=== PATIENT | male | born 1950 | race Caucasian/White ===

== ENCOUNTER → 2017-08-11 | Outpatient (CLI) | payer MEDICARE, OTHER ==
[~2017-08-11] MED LIST: ASPIR 8181 M1 PO; ASPIRIN325 PO; CARAFATE1 GM PO; COCONUT OIL1000 MG PO; COREG3.125 MG PO; EFFIENT10 MG PO; FISH OIL 1,001000 M2 PO; FISH OIL 1,001000 MG PO; FLEXERIL PO; GARLIC OIL1000 MG; ICAPS TABLET1 EACH PO; LIPITOR 20 MG T20 M1 PO; LIPITOR40 MG PO; LISINOPRIL5 MG PO; MEDROLDOSEPACK PO; MULTIVITAMINS1 EAC7; NITROGLYCERIN0.4 MG SUBLING; NORCO 5-325 TA1 EACH PO; OMEPRAZOLE; PLAVIX 75 MG TA75 M1 PO; PROTONIX 20 MG20 M1 PO; PROTONIX40 M4 PO; ZANTAC 150MG T150 M1 PO
--- NOTE | 2017-08-11 13:31 | 2DMMODE ---
[place] [address] 2 D/M-MODE ECHOCARDIOGRAM Name: ALEXANDRE MCGREGOR JR Room: [facility]#: [id number] Admission: 08/11/17 Attend Phys: Tammie Brooks Discharge: Date of : 48 Date of Service: 08/11/17 1331 Report #: [id number] THIS REPORT FOR: //name// APPROVED REPORT Study performed: 08/11/2017 08:01:05 EXAM: Comprehensive 2D, Doppler, and color-flow Echocardiogram Patient Location: Out-Patient BSA: 2.09 HR: 50 bpm BP: 128/88 mmHg Other Information Study Quality: Good Indications CAD Hypertension/HDD 2D Dimensions LVEF(%): 54.08 (>50%) IVSd: 15.88 (7-11mm) LVOT Diam: 18.93 (18-24mm) LVDd: 43.97 mm PWd: 13.04 (7-11mm) Ascending Ao: 33.29 (22-36mm) LVDs: 31.75 (25-40mm) Aortic Root: 29.94 mm Cano's LVEF: 54.08 % Volumes Left Atrial Volume (Systole) LA ESV Index: 34.40 mL/m2 Aortic Valve AoV Peak Cyril.: 2.19 m/s AO Peak Gr.: 19.15 mmHg LVOT Max P.72 mmHg AO Mean Gr.: 10.29 mmHg LVOT Mean P.84 mmHg LVOT Max V: 1.20 m/s AO V2 VTI: 49.93 cm LVOT Mean V: 0.77 m/s AISSATOU (VTI): 1.70 cm2 LVOT V1 VTI: 30.25 cm Mitral Valve E/A Ratio: 1.58 MV Decel. Time: 207.19 [place] [address] 2 D/M-MODE ECHOCARDIOGRAM Name: ALEXANDRE MCGREGOR JR Room: [facility]#: [id number] Admission: 08/11/17 Attend Phys: Tammie Brooks Discharge: Date of : 48 Date of Service: 08/11/17 1331 Report #: [id number] MV E Max Cyril.: 1.05 m/s MV PHT: 60.09 ms MVA (PHT): 3.66 cm2 TDI E/Lateral E': 8.75 E/Medial E': 10.50 Medial E' Cyril.: 0.10 m/s Lateral E' Cyril.: 0.12 m/s Pulmonary Valve PV Peak Cyril.: 0.91 m/s PV Peak Gr.: 3.29 mmHg Tricuspid Valve RAP Estimate: 5.00 mmHg TR Peak Gr.: 17.68 mmHg RVSP: 22.68 mmHg PA Pressure: 22.68 mmHg Left Ventricle The left ventricle is normal size. There is normal LV segmental wall motion. Mild concentric left ventricular hypertrophy. Left ventricular systolic function is normal. The left ventricular ejection fraction is within the normal range. LVEF is 55%. The left ventricular diastolic function is normal. Right Ventricle The right ventricle is normal size. The right ventricular systolic function is normal. Atria Left atrium is borderline dilated. The right atrium size is normal. Aortic Valve Aortic valve is calcified. Trace aortic regurgitation. Mild aortic stenosis. Mitral Valve The mitral valve is normal in structure. Mild mitral regurgitation. No evidence of mitral valve stenosis. Tricuspid Valve The tricuspid valve is normal in structure. Trace tricuspid regurgitation. Pulmonic Valve The pulmonary valve is normal in structure. [place] [address] 2 D/M-MODE ECHOCARDIOGRAM Name: ALEXANDRE MCGREGOR JR Room: [facility]#: [id number] Admission: 08/11/17 Attend Phys: Tammie Brooks Discharge: Date of : 48 Date of Service: 08/11/17 1331 Report #: [id number] regurgitation. Great Vessels The aortic root is normal in size. IVC is normal in size and collapses with >50% inspiration Pericardium There is no pericardial effusion. <Conclusion> The left ventricle is normal size. Mild concentric left ventricular hypertrophy. Left ventricular systolic function is normal. The left ventricular ejection fraction is within the normal range. LVEF is 55%. The left ventricular diastolic function is normal. The right ventricle is normal size. Left atrium is borderline dilated. Aortic valve is calcified. Trace aortic regurgitation. Mild aortic stenosis. The mitral valve is normal in structure. Mild mitral regurgitation. IVC is normal in size and collapses with >50% inspiration There is no pericardial effusion. There is normal LV segmental wall motion. <ELECTRONICALLY SIGNED> By: Jeremiah Anguiano MD, FACC 08/11/17 1331 133 30 Jeremiah Anguiano MD, FACC /INF
== END ==
LOC: M.CRD 07:42
DX: I25.10 Atherosclerotic heart disease of native coronary artery without angina pectoris (principal); I10 Essential (primary) hypertension

== ENCOUNTER → 2017-09-22 | Outpatient (CLI) | payer MEDICARE, OTHER ==
[2017-09-22 08:00] LABS: CREATININE 1.2 mg/dL (0.6-1.3)
== END ==
LOC: M.LAB 07:32
PROVIDERS: Internal Medicine
DX: K57.30 Diverticulosis of large intestine without perforation or abscess without bleeding (principal); J94.8 Other specified pleural conditions; C43.59 Malignant melanoma of other part of trunk; I65.23 Occlusion and stenosis of bilateral carotid arteries; L50.9 Urticaria, unspecified; R10.9 Unspecified abdominal pain; R07.9 Chest pain, unspecified; I25.10 Atherosclerotic heart disease of native coronary artery without angina pectoris; I10 Essential (primary) hypertension

== ENCOUNTER → 2017-11-18 | Outpatient (CLI) | payer MEDICARE, OTHER | LOC: M.ULTRA 07:36 | DX: I65.23 Occlusion and stenosis of bilateral carotid arteries (principal); K21.9 Gastro-esophageal reflux disease without esophagitis ==

== ENCOUNTER → 2018-03-15 | Outpatient (CLI) | payer MEDICARE, OTHER | LOC: M.ULTRA 08:31 | DX: I65.23 Occlusion and stenosis of bilateral carotid arteries (principal) ==

== ENCOUNTER → 2018-08-25 | Outpatient (CLI) | payer MEDICARE, OTHER ==
[2018-08-25 09:06] LABS: CREATININE 1.1 mg/dL (0.6-1.3)
== END ==
LOC: M.LAB 08:30
PROVIDERS: Surgery Vascular Surgery
DX: I65.23 Occlusion and stenosis of bilateral carotid arteries (principal)

== ENCOUNTER → 2018-12-29 | Outpatient (CLI) | payer MEDICARE, OTHER ==
[~2018-12-29] MED LIST changes: +COREG25 MG PO; +RANITIDINE HCL300 MG PO; +TRIAMCINOLONE A80 G2 TOP; +ZYRTEC10 M5 PO
--- NOTE | 2018-12-29 11:14 | 2DMMODE ---
[place] [address] 2 D/M-MODE ECHOCARDIOGRAM Name: ALEXANDRE MCGREGOR JR Room: [facility]#: [id number] Admission: 12/29/18 Attend Phys: Tammie Brooks Discharge: Date of : 48 Date of Service: 12/29/18 1114 Report #: [id number] THIS REPORT FOR: //name// APPROVED REPORT Study performed: 12/29/2018 08:58:47 EXAM: Comprehensive 2D, Doppler, and color-flow Echocardiogram Patient Location: Out-Patient BSA: 2.15 HR: 54 bpm BP: 120/80 mmHg Other Information Study Quality: Good Indications CAD Hypertension/HDD 2D Dimensions IVSd: 11.83 (7-11mm) LVOT Diam: 20.40 (18-24mm) LVDd: 42.02 mm PWd: 11.68 (7-11mm) Ascending Ao: 33.87 (22-36mm) LVDs: 30.84 (25-40mm) Aortic Root: 32.21 mm Volumes Left Atrial Volume (Systole) LA ESV Index: 18.90 mL/m2 Aortic Valve AoV Peak Cyril.: 2.27 m/s AO Peak Gr.: 20.56 mmHg LVOT Max P.42 mmHg AO Mean Gr.: 11.51 mmHg LVOT Mean P.45 mmHg LVOT Max V: 1.16 m/s AO V2 VTI: 51.77 cm LVOT Mean V: 0.71 m/s AISSATOU (VTI): 1.62 cm2 LVOT V1 VTI: 25.68 cm Mitral Valve E/A Ratio: 1.24 MV Decel. Time: 219.63 ms MV E Max Cyril.: 0.99 m/s MV PHT: 63.69 [place] [address] 2 D/M-MODE ECHOCARDIOGRAM Name: ALEXANDRE MCGREGOR JR Room: [facility]#: [id number] Admission: 12/29/18 Attend Phys: Tammie Brooks Discharge: Date of : 48 Date of Service: 12/29/18 1114 Report #: [id number] MVA (PHT): 3.45 cm2 TDI E/Lateral E': 11.00 E/Medial E': 11.00 Medial E' Cyril.: 0.09 m/s Lateral E' Cyril.: 0.09 m/s Pulmonary Valve PV Peak Cyril.: 0.94 m/s PV Peak Gr.: 3.57 mmHg Left Ventricle The left ventricle is normal size. There is normal LV segmental wall motion. There is normal left ventricular wall thickness. Left ventricular systolic function is normal. The left ventricular ejection fraction is within the normal range. LVEF is 55-60%. The left ventricular diastolic function is normal. Right Ventricle The right ventricle is normal size. The right ventricular systolic function is normal. Atria The left atrium size is normal. The right atrium size is normal. Aortic Valve Aortic valve is mild to moderately calcified. No aortic regurgitation is present. Mild aortic stenosis. Mitral Valve Mild mitral annular calcification. Mild mitral regurgitation. No evidence of mitral valve stenosis. Tricuspid Valve The tricuspid valve is normal in structure. There is no tricuspid valve regurgitation noted. Pulmonic Valve The pulmonary valve is normal in structure. Mild pulmonic regurgitation. Great Vessels The aortic root is normal in size. IVC is normal in size and collapses >50% [place] [address] 2 D/M-MODE ECHOCARDIOGRAM Name: ALEXANDRE MCGREGOR JR Room: [facility]#: [id number] Admission: 12/29/18 Attend Phys: Tammie Brooks Discharge: Date of : 48 Date of Service: 12/29/18 1114 Report #: [id number] There is no pericardial effusion. <Conclusion> The left ventricle is normal size. There is normal left ventricular wall thickness. Left ventricular systolic function is normal. The left ventricular ejection fraction is within the normal range. LVEF is 55-60%. The left ventricular diastolic function is normal. The right ventricle is normal size. The left atrium size is normal. Aortic valve is mild to moderately calcified. No aortic regurgitation is present. Mild aortic stenosis. Mild mitral annular calcification. Mild mitral regurgitation. No evidence of mitral valve stenosis. The tricuspid valve is normal in structure. IVC is normal in size and collapses >50% with inspiration. There is no pericardial effusion. There is normal LV segmental wall motion. <ELECTRONICALLY SIGNED> By: Jeremiah Anguiano MD, FACC 12/29/18 1114 1114 111 Jeremiah Anguiano MD, FACC /INF
== END ==
LOC: M.CRD 08:47
DX: I08.8 Other rheumatic multiple valve diseases (principal); I25.10 Atherosclerotic heart disease of native coronary artery without angina pectoris; I10 Essential (primary) hypertension

== ENCOUNTER → 2019-05-16 | Outpatient (CLI) | payer MEDICARE, OTHER | LOC: M.RAD 11:01 | DX: M25.531 Pain in right wrist (principal); M79.89 Other specified soft tissue disorders ==

== ENCOUNTER 2020-03-23 01:28 | Inpatient (IN) | payer MEDICARE, OTHER ==
[~2020-03-23] VITALS: Ht 180.3 cm; Wt 93.3 kg
[2020-03-23] VITALS (16 sets, daily range): BP systolic 105–168; BP diastolic 57–88
[2020-03-23 02:05] LABS: ABSOLUTE EOSINOPHILS 0.1 thou/uL (0.0-0.7); ABSOLUTE LYMPHOCYTES 1.6 thou/uL (0.8-5.3); ABSOLUTE MONOCYTES 0.9 thou/uL (0.0-1.2); ABSOLUTE NEUTROPHILS 6.5 thou/uL (1.6-8.1); BASOPHILS 0.5 %; EOSINOPHILS 1.5 %; HEMATOCRIT 43.1 % (42.0-52.0); HEMOGLOBIN 14.7 gm/dL (14.0-18.0); LYMPHOCYTES 16.9 %; MCH 31.5 pg (26.0-34.0); MCHC 34.1 g/dL (28.0-37.0); MCV 92.4 fL (80.0-100.0); MONOCYTES 10.1 %; MPV 8.4 fl. (7.2-11.1); NUCLEATED RBCS 0 /100WBC; PLATELET COUNT* 278 thou/uL (150-400); RBC 4.66 mil/uL (4.50-6.00); RDW-CV 12.8 % (10.5-14.5); WBC 9.2 thou/uL (4.0-11.0)
[2020-03-23 02:12] LABS: CALCIUM 10.1 mg/dL (8.5-10.1); CREATININE 1.2 mg/dL (0.6-1.3); POTASSIUM 4.1 mmol/L (3.5-5.1)
[2020-03-23 02:23] LABS: ALBUMIN 3.6 g/dL (3.4-5.0); TOTAL BILIRUBIN 0.5 mg/dL (<0.1-1.0); TOTAL PROTEIN 6.8 g/dL (6.4-8.2)
[2020-03-23 02:33] LABS: APTT 26.9 Seconds (25.0-31.3); PROTIME 10.9 Seconds (9.20-11.50)
[2020-03-23 08:49] LABS: CHOLESTEROL 207 mg/dL (<200); HDL CHOLESTEROL 29 mg/dL (>40); LDL CHOLESTEROL 159 mg/dL (<100); SERUM ASSESSMENT Clear; TC:HDL 7.1 Ratio (Not establshd); TRIGLYCERIDE 96 mg/dL (<150); VLDL 19 mg/dL (<40)
--- NOTE | 2020-03-23 12:59 | EKG ---
[place] [address] ELECTROCARDIOGRAM REPORT Name: ALEXANDRE MCGREGOR JR Room: [address] ADM IN M.R.#: [id number] Admission: 03/23/20 Attend Phys: Omid Willson, Discharge: Date of : 48 Date of Service: 03/23/20 0138 Report #: [id number] THIS REPORT FOR: //name// [facility] ED Test Date: 2020-03-23 Test Time: 01:38:06 Pat Name: ALEXANDRE COTTONNEY Department: Room: [facility] Gender: M Supervisor Ovens: RAPHAEL : 1950 Requested By: Carmencita Melissa Order Number: [id number] MD: Yogesh Love Measurements Intervals [place] Rate: 77 P: -15 KS: 190 QRS: -5 QRSD: 99 T: -16 QT: 373 QTc: 423 Interpretive Statements Sinus rhythm Multiple ventricular premature complexes Abnormal R-wave progression, early transition Inferior infarct, age indeterminate Compared to ECG 12/17/2014 18:22:35 Ventricular premature complex(es) now present Myocardial infarct finding now present Electronically Signed On 03-23-2020 12:59:43 RESISTANCE BRAZER by Yogesh Love [email or web address] <ELECTRONICALLY SIGNED> By: Yogesh Love MD, FACC 03/23/20 1259 7 7 Yogesh Love MD, [facility] /EPI
--- NOTE | 2020-03-23 13:00 | EKG ---
[place] [address] ELECTROCARDIOGRAM REPORT Name: ALEXANDRE MCGREGOR JR Room: [address] ADM IN M.R.#: [id number] Admission: 03/23/20 Attend Phys: Omid Willson, Discharge: Date of : 48 Date of Service: 03/23/20 0336 Report #: [id number] THIS REPORT FOR: //name// [facility] ED Test Date: 2020-03-23 Test Time: 03:36:21 Pat Name: ALEXANDRE COTTONNEY Department: Room: [facility] Gender: M Computer Systems Technician: : 1950 Requested By: Carmencita Melissa Order Number: [id number] MD: Yogesh Love Measurements Intervals [place] Rate: 59 P: 5 IN: 206 QRS: -8 QRSD: 108 T: 60 QT: 440 QTc: 436 Interpretive Statements Sinus rhythm Probable inferior infarct, old Compared to ECG 03/23/2020 01:38:06 Ventricular premature complex(es) no longer present Myocardial infarct finding still present Electronically Signed On 03-23-2020 13:00:36 TRACK MAINTAINER by Yogesh Love [email or web address] <ELECTRONICALLY SIGNED> By: Yogesh Love MD, FACC 03/23/20 1300 0336 0336 Yogesh Love MD, FACC /EPI
--- NOTE | 2020-03-23 13:01 | EKG ---
[place] [address] ELECTROCARDIOGRAM REPORT Name: ALEXANDRE MCGREGOR JR Room: [address] ADM IN M.R.#: [id number] Admission: 03/23/20 Attend Phys: Omid Willson, Discharge: Date of : 48 Date of Service: 03/23/20 0838 Report #: [id number] THIS REPORT FOR: //name// [facility] Test Date: 2020-03-23 Test Time: 08:38:30 Pat Name: ALEXANDRE COTTONNEY Department: Room: [address] Gender: M Satellite Communications Engineer: : 1950 Requested By: Aixa Simms Order Number: [id number] Reading MD: Yogesh Love Measurements Intervals [place] Rate: 66 P: 4 GA: 202 QRS: -2 QRSD: 93 T: QT: 419 QTc: 439 Interpretive Statements Sinus rhythm Ventricular bigeminy Abnormal R-wave progression, early transition Borderline repolarization abnormality Baseline wander in lead(s) II,III,aVR,aVL,aVF Compared to ECG 03/23/2020 03:36:21 Ventricular premature complex(es) now present Myocardial infarct finding no longer present Electronically Signed On 03-23-2020 13:01:13 POTATO CHIP PACKAGING MACHINE OPERATOR by Yogesh Love [email or web address] <ELECTRONICALLY SIGNED> By: Yogesh Love MD, FAC 03/23/20 1301 7 7 Yogesh Love MD, [facility] /EPI
--- NOTE | 2020-03-23 13:02 | EKG ---
[place] [address] ELECTROCARDIOGRAM REPORT Name: ALEXANDRE MCGREGOR JR Room: [address] ADM IN M.R.#: [id number] Admission: 03/23/20 Attend Phys: Omid Willson, Discharge: Date of : 48 Date of Service: 03/23/20 1126 Report #: [id number] THIS REPORT FOR: //name// [facility] Test Date: 2020-03-23 Test Time: 11:26:36 Pat Name: ALEXANDRE MCGREGOR Department: Room: [address] Gender: M Window Shade Installer: GUTIERREZ : 1950 Requested By: Jeremiah Anguiano Order Number: [id number] Asha MD: Yogesh Love Measurements Intervals [place] Rate: 63 P: 10 TN: 199 QRS: -2 QRSD: 104 T: 34 QT: 409 QTc: 419 Interpretive Statements Sinus rhythm Multiform ventricular premature complexes Inferoposterior infarct, old Baseline wander in lead(s) V6 Compared to ECG 03/23/2020 08:38:30 Myocardial infarct finding now present Electronically Signed On 03-23-2020 13:02:09 DOG GROOMER by Yogesh Love [email or web address] <ELECTRONICALLY SIGNED> By: Yogesh Love MD, FACC 03/23/20 1302 1126 1126 Yogesh Love MD, FACC /EPI
--- NOTE | 2020-03-23 14:47 | CARD ---
[address] [address] CARDIAC CATH REPORT Name: ALEXANDRE MCGREGOR JR Room: [address] IN ..#: [id number] Admission: 03/23/20 Attend Phys: Omid Willson MD Discharge: Date of : 48 Report #: [id number] THIS REPORT FOR: cc: FAM - No family physician/PCP FAM - No family physician/PCP ~ Jeremiah Anguiano MD [facility] APPROVED REPORT Study performed: 03/23/2020 08:43:32 Patient Details Patient Status: In-Patient Room #: 212 The patient is a 70 year-old male Event Personnel Jeremiah Anguiano White Work Cleaner, Tea Ashley RN Monitor, Marina Cordero RN Certified Ophthalmic Technician, Brett Poole RTR Scrub Procedures Performed Art Access - R femoral artery* Left Heart Cath w/or w/o Coronaries C BIRD Place w/wo Plasty Single DIAG Hemostasis w/ Angioseal Indication Non-STEMI , Unstable angina Risk Factors Arterial Hypertension Previous Procedures/Diagnoses Previous PCI Admission/Lab Medications/Medications given during procedure Aspirin, Thrombin Inhibitors, Platelet Aff. Inhib. Procedure Narrative The patient was brought emergently to the Cardiac Catheterization Laboratory and was prepped and draped in a sterile manner. The right femoral was infiltrated with 2% Lidocaine subcutaneous anesthesia. A Clifton 6 FR sheath was inserted into the right femoral artery. Coronary angiography was performed using coronary diagnostic catheters. The right coronary system was accessed and visualized with a Diagnostic JR4 6Fr catheter. The left coronary system was accessed and visualized with a Diagnostic JL4 6Fr catheter[place] [address] CARDIAC CATH REPORT Name: ALEXANDRE MCGREGOR JR Room: [address]#: [id number] Admission: 03/23/20 Attend Phys: Omid Willson MD Discharge: Date of : 48 Report #: [id number] was accessed and visualized with a Diagnostic PIGTAIL catheter. Left ventricular/Aortic Valve gradient assessed via catheter pullback. Left ventriculogram was performed in MCCULLOUGH projection. Pre-demployment femoral angiogram was performed . The patient tolerated the procedure well and there were no complications associated with the procedure. There was no hematoma. Intraoperative Conscious Sedation Sedation start time: 09:30 Case end Time: 10:25 Fentanyl 25 mcg Versed 2 mg Fluoro Time: 13 minutes Dose: DAP 633318 cGycm2 2055 mGy Contrast Type and Amount: Visipaque 280 ml Diagnostic Cath Left Main 0% narrowing LAD Widely patent proximal LAD stent with 30% mid vessel narrowing Diagonal 1 95% stenosis of the midportion of the prominent first diagonal branch with NICO II flow to the distal vessel Circumflex 70% tubular mid circumflex stenosis with 90% ostial first marginal stenosis Right Coronary 50% tubular mid vessel narrowing with 100% occlusion of the distal right coronary artery with [id number] collaterals filling the distal right coronary artery in retrograde fashion Left Ventriculography The left ventricle is normal in size with normal contractility. The left ventricular ejection fraction is estimated to be 55%. Left ventricular wall motion abnormalities are present. There is no mitral insufficiency. Mid anterior hypokinesis is noted Hemodynamics The aortic pressure is 96/51 mmHg with a mean of 64 mmHg. The left ventricular pressure is 120/4 mmHg with a mean of mmHg. The left ventricular end diastolic pressure is 20 mmHg. Pullback from the left ventricle to the aorta revealed a 15 mm gradient across the aortic valve. PCI Technique Lesion Anticoagulation was achieved with Angiomax. Percutaneous coronary intervention was performed on the first diagnonal branch segment. The lesion stenosis prior to intervention was 95% with NICO 2 flow. [place] 6[place] [address] CARDIAC CATH REPORT Name: ALEXANDRE MCGREGOR JR Room: [address]#: [id number] Admission: 03/23/20 Attend Phys: Omid Willson MD Discharge: Date of : 48 Report #: [id number] XB 3.5 100CM Guide Catheter was used to engage the Left Main ostium. A IG: BMW 190cm Interventional Guidewire was used to cross the lesion. BALLOON DILATION A Balloon catheter Mini Trek RX 2.0 X 15 was inserted and inflated up to 14.00atm for 15seconds. Additional Inflation: 15.00atm for 9seconds. A Balloon Catheter NC Trek 2.00 x 12mm was inserted and inflated up to 18 daniel for 9 seconds. Additional Inflation: 18 daniel for 10 seconds STENT DEPLOYMENT A drug-eluting stent [place] RX Stent 2.0X15mm was inserted and inflated up to 10.00atm for 7seconds. Additional Inflation: 12.00atm for 8seconds. POST STENT DEPLOYMENT BALLOON DILATION A Balloon catheter NC Trek RX 2.0 X 8 was inserted and inflated up to 17.00atm for 8seconds. Additional Inflation: 15.00atm for 8seconds. Final angiography reveals 10 % stenosis with NICO 3 flow. Conclusion 1. Significant multivessel coronary artery disease characterized by the following: A widely patent proximal LAD stent with 30% of mid vessel narrowing B 95% stenosis of the midportion of the prominent first diagonal branch with NICO II flow to the distal vessel C 70% tubular mid circumflex narrowing with 90% ostial first marginal stenosis D 50% tubular mid right coronary narrowing with 100% distal occlusion and left to right collaterals filling the distal right coronary artery in retrograde fashion 2. Normal global LV function, estimated ejection fraction being 55% with mid anterior hypokinesis 3. Moderate elevation of left ventricular end-[place] [address] CARDIAC CATH REPORT Name: ALEXANDRE MCGREGOR JR Room: [address]#: [id number] Admission: 03/23/20 Attend Phys: Omid Willson MD Discharge: Date of : 48 Report #: [id number] 4. Successful PCI with deployment of a drug-eluting stent at site of 95% first diagonal stenosis with 10% residual narrowing NICO-3 flow to the distal vessel and no residual thrombus 5. Mild aortic stenosis Recommendations Daily ASA with Plavix for at least one year Aggressive Medical Therapy Medications Administered Aspirin (any) Clopidogrel Diagnostic Cath Approved by: Jeremiah Anguiano MD Date/Time: 03/23/2020 14:44:46 <ELECTRONICALLY SIGNED> By: Jeremiah Anguiano MD, [facility] 03/23/20 1447 144 1447Jeremiah Anguiano MD, FACC /INF
[2020-03-24 04:18] LABS: HEMOGLOBIN 12.8 gm/dL (14.0-18.0); MCH 31.8 pg (26.0-34.0); MCHC 34.6 g/dL (28.0-37.0); MCV 91.9 fL (80.0-100.0); MPV 8.8 fl. (7.2-11.1); RBC 4.02 mil/uL (4.50-6.00); RDW-CV 12.7 % (10.5-14.5); WBC 9.4 thou/uL (4.0-11.0)
[2020-03-24 04:20] LABS: ALBUMIN 2.9 g/dL (3.4-5.0); CALCIUM 9.5 mg/dL (8.5-10.1); CREATININE 1.1 mg/dL (0.6-1.3); POTASSIUM 3.9 mmol/L (3.5-5.1); TOTAL BILIRUBIN 0.6 mg/dL (<0.1-1.0); TOTAL PROTEIN 5.4 g/dL (6.4-8.2)
[2020-03-24 04:21] VITALS: BP 117/67
[2020-03-24 08:00] VITALS: BP 130/52
[2020-03-24 11:49] VITALS: BP 137/75
[2020-03-24] MEDS ORDERED: PLAVIX 75 MG TA75 MG PO (12:37)
[2020-03-24] MEDS ORDERED: COREG3.125 MG PO (12:37)
[2020-03-24] MEDS ORDERED: ASPIR 8181 MG PO (12:37)
[2020-03-24] MEDS ORDERED: PROTONIX40 M2 PO (12:37)
[2020-03-24 15:49] VITALS: BP 137/75
--- NOTE | 2020-03-26 09:16 | EKG ---
[place] [address] ELECTROCARDIOGRAM REPORT Name: ALEXANDRE MCGREGOR JR Room: [address] IN M.R.#: [id number] Admission: 03/23/20 Attend Phys: Omid Willson, Discharge: 03/24/20 Date of : 48 Date of Service: 03/24/20 0413 Report #: [id number] THIS REPORT FOR: //name// [facility] Test Date: 2020-03-24 Test Time: 04:13:49 Pat Name: ALEXANDRE MCGREGOR Department: Room: [address] Gender: M Store Sales Manager: AJ : 1950 Requested By: Jeremiah Anguiano Order Number: [id number] Asha MD: Phuc Armenta Measurements Intervals [place] Rate: 65 P: 10 MT: 198 QRS: -2 QRSD: 92 T: 118 QT: 392 QTc: 408 Interpretive Statements Sinus rhythm Multiform ventricular premature complexes Inferoposterior infarct, old Lateral leads are also involved Compared to ECG 03/23/2020 11:26:36 No significant changes Electronically Signed On 03-26-2020 9:16:38 RELATIONS SPECIALIST by Phuc Armenta [email or web address] <ELECTRONICALLY SIGNED> By: Phuc Armenta MD, [facility] 03/26/20 0916 0413 0413 Phuc Armenta MD, [facility] /EPI
--- NOTE | 2020-03-26 12:52 | EKG ---
[place] [address] ELECTROCARDIOGRAM REPORT Name: ALEXANDRE MCGREGOR JR Room: [address] IN M.R.#: [id number] Admission: 03/23/20 Attend Phys: Omid Willson, Discharge: 03/24/20 Date of : 48 Date of Service: 03/24/20 0931 Report #: [id number] THIS REPORT FOR: //name// [facility] Test Date: 2020-03-24 Test Time: 09:31:40 Pat Name: ALEXANDRE COTTONNEY Department: Room: [address] Gender: M Licensed Master Social Worker: : 1950 Requested By: Jeremiah Anguiano Order Number: [id number] Reading MD: Phuc Armenta Measurements Intervals [place] Rate: 65 P: 26 FL: 200 QRS: 0 QRSD: 91 T: 111 QT: 392 QTc: 408 Interpretive Statements Sinus rhythm Multiple ventricular premature complexes Abnormal inferior Q waves Posterior infarct, old Borderline repolarization abnormality Baseline wander in lead(s) V5 Compared to ECG 03/24/2020 04:13:49 Myocardial infarct finding still present Electronically Signed On 03-26-2020 12:52:36 WRIST HEMMER by Puhc Armenta [email or web address] <ELECTRONICALLY SIGNED> By: Phuc Armenta MD, FACC 03/26/20 1252 0 0 Phuc Armenta MD, [facility] /EPI
== END 2020-03-24 16:20 | disposition home or self-care (01) | DRG 246 ==
LOC: M.ERS 01:28 → M.2W 03:49 → M.TBA-ER 03:49 → M.2W 04:35
PROVIDERS: Family Medicine; Internal Medicine; Personal Emergency Response Attendant; Registered Nurse; ADMIT Internal Medicine; ATTEND Internal Medicine
DX: I21.4 Non-ST elevation (NSTEMI) myocardial infarction (principal); I50.33 Acute on chronic diastolic (congestive) heart failure; I11.0 Hypertensive heart disease with heart failure; I25.10 Atherosclerotic heart disease of native coronary artery without angina pectoris; I35.0 Nonrheumatic aortic (valve) stenosis; E78.5 Hyperlipidemia, unspecified; N40.0 Benign prostatic hyperplasia without lower urinary tract symptoms; K21.9 Gastro-esophageal reflux disease without esophagitis; Z20.822 Contact with and (suspected) exposure to COVID-19; Z95.5 Presence of coronary angioplasty implant and graft; Z79.82 Long term (current) use of aspirin; Z79.899 Other long term (current) drug therapy; Z88.8 Allergy status to other drugs, medicaments and biological substances; Z23 Encounter for immunization

== ENCOUNTER 2020-04-04 08:57 | Observation (INO) | payer MEDICARE, OTHER ==
[~2020-04-04] VITALS: Ht 180.3 cm; Wt 87.1 kg
[2020-04-04] VITALS (12 sets, daily range): BP systolic 137–162; BP diastolic 62–92
[~2020-04-04 08:57] MED LIST changes: +ASPIR 8181 MG PO; +PLAVIX 75 MG TA75 MG PO; +PROTONIX40 M2 PO; -RANITIDINE HCL300 MG PO; +ranitidine PO
[2020-04-04 09:34] LABS: HEMATOCRIT 42.2 % (42.0-52.0); HEMOGLOBIN 14.5 gm/dL (14.0-18.0); MCH 31.9 pg (26.0-34.0); MCHC 34.3 g/dL (28.0-37.0); MCV 92.9 fL (80.0-100.0); MPV 8.2 fl. (7.2-11.1); RBC 4.54 mil/uL (4.50-6.00); RDW-CV 12.7 % (10.5-14.5); WBC 5.5 thou/uL (4.0-11.0)
[2020-04-04 09:45] LABS: ANION GAP 4 mmol/L (7-16); BUN 13 mg/dL (7-18); CALCIUM 10.2 mg/dL (8.5-10.1); CHLORIDE 105 mmol/L (98-107); CO2 29 mmol/L (21-32); CREATININE 1.1 mg/dL (0.6-1.3); GLUCOSE 111 mg/dL (70-99); POTASSIUM 4.2 mmol/L (3.5-5.1); SODIUM 138 mmol/L (136-145)
[2020-04-04 09:52] LABS: ALBUMIN 3.6 g/dL (3.4-5.0); ALKALINE PHOSPHATASE 73 U/L (46-116); CHOLESTEROL 211 mg/dL (<200); HDL CHOLESTEROL 33 mg/dL (>40); LDL CHOLESTEROL 158 mg/dL (<100); SGOT 12 U/L (15-37); SGPT 29 U/L (30-65); TC:HDL 6.4 Ratio (Not establshd); TOTAL BILIRUBIN 0.4 mg/dL (<0.1-1.0); TOTAL PROTEIN 7.2 g/dL (6.4-8.2); TRIGLYCERIDE 103 mg/dL (<150); VLDL 21 mg/dL (<40)
[2020-04-04 09:54] LABS: SERUM ASSESSMENT Clear
[2020-04-04 10:00] LABS: APTT 26.8 Seconds (25.0-31.3); PROTIME 10.4 Seconds (9.20-11.50)
--- NOTE | 2020-04-04 15:13 | 2DMMODE ---
[place] [address] 2 D/M-MODE ECHOCARDIOGRAM Name: ALEXANDRE MCGREGOR JR Room: [address] Doc#: [id number] Admission: 04/04/20 Attend Phys: Tammie Brooks Discharge: Date of : 48 Date of Service: 04/04/20 1513 Report #: [id number] THIS REPORT FOR: cc: ALICIA - Talisha family physician/PCP ALICIA - Talisha family physician/PCP Jeremiah Anguiano MD [facility] ~ APPROVED REPORT Study performed: 04/04/2020 13:52:34 EXAM: Comprehensive 2D, Doppler, and color-flow Echocardiogram Patient Location: In-Patient Room #: cl Status: routine BSA: 2.07 HR: 58 bpm BP: 146/83 mmHg Rhythm: NSR Other Information Study Quality: Good Indications CAD MR 2D Dimensions IVSd: 12.05 (7-11mm) LVOT Diam: 21.89 (18-24mm) LVDd: 49.75 mm PWd: 10.22 (7-11mm) LVDs: 29.79 (25-40mm) Aortic Root: 34.61 mm Volumes Left Atrial Volume (Systole) LA ESV Index: 18.90 mL/m2 Aortic Valve AoV Peak Cyril.: 2.29 m/s AO Peak Gr.: 21.06 mmHg LVOT Max P.34 mmHg AO Mean Gr.: 11.36 mmHg LVOT Mean P.98 mmHg LVOT Max V: 1.04 m/s AO V2 VTI: 41.58 cm LVOT Mean V: 0.64 m/s AISSATOU (VTI): 1.81 cm2 LVOT V1 VTI: 20.03 [place] [address] 2 D/M-MODE ECHOCARDIOGRAM Name: ALEXANDRE MCGREGOR Room: [address] MCarissa#: [id number] Admission: 04/04/20 Attend Phys: Tammie Brooks Discharge: Date of : 48 Date of Service: 04/04/20 1513 Report #: [id number] Mitral Valve E/A Ratio: 1.22 MV Decel. Time: 178.19 ms MV E Max Cyril.: 0.82 m/s MV PHT: 51.67 ms MVA (PHT): 4.26 cm2 TDI E/Lateral E': 8.20 E/Medial E': 9.11 Medial E' Cyril.: 0.09 m/s Lateral E' Cyril.: 0.10 m/s Left Ventricle The left ventricle is normal size. There is normal LV segmental wall motion. There is normal left ventricular wall thickness. Left ventricular systolic function is normal. The left ventricular ejection fraction is within the normal range. LVEF is 55%. The left ventricular diastolic function is normal. Right Ventricle The right ventricle is normal size. The right ventricular systolic function is normal. Atria The left atrium size is normal. The right atrium size is normal. Aortic Valve Moderate aortic valve sclerosis. No aortic regurgitation is present. Mild aortic stenosis. Mitral Valve There is mitral annular calcification. Mild mitral regurgitation. No evidence of mitral valve stenosis. Tricuspid Valve The tricuspid valve is normal in structure. Trace tricuspid regurgitation. Unable to assess PA pressure. Pulmonic Valve The pulmonary valve is normal in structure. There is no pulmonic valvular regurgitation. Great Vessels The aortic root is normal in size. IVC is [place] [address] 2 D/M-MODE ECHOCARDIOGRAM Name: ALEXANDRE MCGREGOR JR Room: [address] Doc#: [id number] Admission: 04/04/20 Attend Phys: Tammie Brooks Discharge: Date of : 48 Date of Service: 04/04/20 1513 Report #: [id number] collapses >50% with inspiration. Pericardium There is no pericardial effusion. <Conclusion> The left ventricle is normal size. There is normal left ventricular wall thickness. Left ventricular systolic function is normal. The left ventricular ejection fraction is within the normal range. LVEF is 55%. The right ventricle is normal size. The left atrium size is normal. Moderate aortic valve sclerosis. No aortic regurgitation is present. Mild aortic stenosis. There is mitral annular calcification. Mild mitral regurgitation. The tricuspid valve is normal in structure. IVC is normal in size and collapses >50% with inspiration. There is no pericardial effusion. There is normal LV segmental wall motion. <ELECTRONICALLY SIGNED> By: Jeremiah Anguiano MD, [facility] 04/04/20 1513 1513 151 Jeremiah Anguiano MD, FACC /INF
--- NOTE | 2020-04-04 15:29 | EKG ---
[place] [address] ELECTROCARDIOGRAM REPORT Name: ALEXANDRE MCGERGOR JR Room: [address] M.R.#: [id number] Admission: 04/04/20 Attend Phys: Tammie Brooks Discharge: Date of : 48 Date of Service: 04/04/20 1013 Report #: [id number] THIS REPORT FOR: //name// [facility] Test Date: 2020-04-04 Test Time: 10:13:46 Pat Name: ALEXANDRE MCGREGOR Department: Room: [facility] Gender: M Performance Consultant: TRAVIS : 1950 Requested By: Jeremiah Anguiano Order Number: [id number] Reading MD: Jeremiah Anguiano Measurements Intervals [place] Rate: 59 P: 39 GA: 214 QRS: 10 QRSD: 102 T: 84 QT: 398 QTc: 395 Interpretive Statements Sinus rhythm Borderline prolonged GA interval Probable left atrial enlargement Posterior infarct, old possible Nonspecific repol abnormality, diffuse leads Compared to ECG 03/24/2020 09:31:40 Ventricular premature complex(es) no longer present Inferior Q waves no longer present Prominent right precordial R waves persist Electronically Signed On 04-04-2020 15:29:11 PARACHUTE PANEL JOINER by Jeremiah Anguiano [email or web address] <ELECTRONICALLY SIGNED> By: Jeremiah Anguiano MD, [facility] 04/04/20 1529 1013 1013 Jeremiah Anguiano MD, [facility] /EPI
--- NOTE | 2020-04-04 15:34 | EKG ---
[place] [address] ELECTROCARDIOGRAM REPORT Name: ALEXANDRE MCGREGOR JR Room: [address] M.R.#: [id number] Admission: 04/04/20 Attend Phys: Tammie Brooks Discharge: Date of : 48 Date of Service: 04/04/20 1320 Report #: [id number] THIS REPORT FOR: //name// [facility] Test Date: 2020-04-04 Test Time: 13:20:59 Pat Name: ALEXANDRE COTTONNEY Department: Room: [facility] Gender: M Drill Foreman: : 1950 Requested By: Jeremiah Anguiano Order Number: [id number] Reading MD: Jeremiah Anguiano Measurements Intervals [place] Rate: 62 P: -35 [place]: 187 QRS: 8 QRSD: 92 T: 88 QT: 383 QTc: 389 Interpretive Statements Sinus rhythm Ventricular premature complex Abnormal R-wave progression, early transition Borderline repolarization abnormality Compared to ECG 04/04/2020 10:13:46 Ventricular premature complex(es) now present Myocardial infarct finding no longer present Electronically Signed On 04-04-2020 15:34:45 PERCOLATOR OPERATOR by Jeremiah Anguiano [email or web address] <ELECTRONICALLY SIGNED> By: Jeremiah Anguiano MD, FAC 04/04/20 1534 1320 1320 Jeremiah Anguiano MD, FAC /EPI
--- NOTE | 2020-04-04 15:56 | CARD ---
[address] [address] CARDIAC CATH REPORT Name: ALEXANDRE MCGREGOR JR Room: [address] M.R.#: [id number] Admission: 04/04/20 Attend Phys: Jeremiah Anguiano MD, Discharge: Date of : 48 Report #: [id number] THIS REPORT FOR: cc: FAM - No family physician/PCP FAM - No family physician/PCP ~ Jeremiah Anguiano MD [facility] APPROVED REPORT Study performed: 04/04/2020 09:57:36 Patient Details Patient Status: Out-Patient Room #: The patient is a 70 year-old male Event Personnel Stephanie Sutherland RN RN, Madisyn Gilmore RTR Monitor, Thor Akhtar MEDICAL ASSISTANT PER DIEM Scrub, Jeremiah Anguiano Underground Repairer Procedures Performed Art Access - L femoral artery Left Heart Cath w/or w/o Coronaries BIRD Place w/wo Plasty Single CIRC BIRD Place w/wo Plasty Addl BR OM 1 Hemostasis w/ Mynx Indication Unstable angina Risk Factors Peripheral Vascular Disease, Hypercholesterolemia, Hypertension Previous Procedures/Diagnoses Previous PCI, Previous MS Admission/Lab Medications/Medications given during procedure 0.9% Sodium Chloride IV 75 ml per hr, Oxygen Nasal cannula 2 l per min, Fentanyl IV 25 mcg, Midazolam (Versed) IV 2 mg, Lidocaine Subcut 10 ml, Angiomax IV 13.5 ml, Angiomax Drip IV 30.55 ml per hr, Plavix PO 600 mg, Aspirin PO 162 mg Procedure Narrative The patient was brought electively to the Cardiac Catheterization Laboratory and was prepped and draped in a sterile manner. The left femoral was infiltrated with 2% Lidocaine subcutaneous anesthesia. A [place] 6 FR sheath was inserted into [place] [address] CARDIAC CATH REPORT Name: ALEXANDRE MCGREGOR JR Room: [address]#: [id number] Admission: 04/04/20 Attend Phys: Jeremiah Anguiano MD, Discharge: Date of : 48 Report #: [id number] Coronary angiography was performed using coronary diagnostic catheters. The right coronary system was accessed and visualized with a Diagnostic 6FR JR4 catheter. The left coronary system was accessed and visualized with a Guide 6FR XB3.5 catheter. The left ventricle was accessed and visualized with a Diagnostic 6FR PIGTAIL catheter. Left ventricular/Aortic Valve gradient assessed via catheter pullback. Pre-demployment femoral angiogram was performed . Closure device was deployed with a 6 Fr Mynx 6Fr/7Fr. The patient tolerated the procedure well and there were no complications associated with the procedure. There was no hematoma. Intraoperative Conscious Sedation Sedation start time: 1042 Case end Time: 1214 Fentanyl 25 mcg Versed 2 mg Fluoro Time: 21.4 minutes Dose: DAP [id number] cGycm2 2768 mGy Contrast Type and Amount: Visipaque 230 ml Diagnostic Cath Left Main 10% distal narrowing LAD 40% mid LAD narrowing; there was 30% proximal first diagonal narrowing with a widely patent mid first diagonal stent Circumflex 75% tubular mid circumflex narrowing with 90% ostial first marginal stenosis Right Coronary 100% occlusion just distal to the acute marginal left to right collaterals filling the distal right coronary artery Left Ventriculography Left Ventriculography was not performed. Hemodynamics The aortic pressure is 169/78 mmHg with a mean of 114 mmHg. The left ventricular pressure is 175/3 mmHg with a mean of mmHg. The left ventricular end diastolic pressure is 21 mmHg. There was no gradient across the aortic valve upon pullback. PCI Technique Lesion Anticoagulation was achieved with Angiomax Drip. Patient was preloaded with Angiomax Drip IV 30.55 ml per hrAngiomax IV 13.5 ml. Percutaneous coronary intervention was performed on the first obtuse marginal branch segment. The lesion stenosis prior to intervention was 90% with NICO 3 flow. A 6FR XB 3.5 100CM [place] [address] CARDIAC CATH REPORT Name: ALEXANDRE MCGREGOR JR Room: [address] M.R.#: [id number] Admission: 04/04/20 Attend Phys: Jeremiah Anguiano MD, Discharge: Date of : 48 Report #: [id number] to engage the left ostium. A BMW 190CM Interventional Guidewire was used to cross the lesion. BALLOON DILATION A Balloon catheter Mini Trek RX 2.0 X 12 was inserted and inflated up to 14.00atm for 10seconds. STENT DEPLOYMENT A drug-eluting stent Theron RX Stent 2.0X12mm was inserted and inflated up to 12.00atm for 10seconds. Additional Inflation: 15.00atm for 6seconds. POST STENT DEPLOYMENT BALLOON DILATION A Balloon catheter NC Trek RX 2.25 X 8 was inserted and inflated up to 14.00atm for 7seconds. Additional Inflation: 15.00atm for 8seconds. Additional Inflation: 16.00atm for 7seconds. Final angiography reveals 10 % stenosis with NICO 3 flow. PCI Technique Lesion 2 Percutaneous Coronary Intervention was performed on the Mid circumflex artery segment. Patient was preloaded with Angiomax IV 13.5 ml. The lesion stenosis prior to intervention was 75% with NICO 3 flow. A 6FR XB 3.5 100CM Guide Catheter was used to engage the Left ostium. A 6FR [place] 90CM Interventional Guidewire was used to cross the lesion. Balloon Dilation A Balloon catheter Trek RX 2.5 X 15 was inserted and inflated up to 16.00atm for 8seconds. Stent Deployment A drug-eluting stent Theron RX Stent 2.5X18mm was inserted and inflated up to 16.00atm for 12seconds. Additional Inflation: 18.00atm for 8seconds. Final angiography reveals 0 % stenosis with NICO 3 flow. Comments The PCI to the circumflex was technically complex by virtue of the bifurcation nature of the disease requiring significant lesion preparation and ultimately stenting of both limbs of the bifurcation disease. [address] [address] CARDIAC CATH REPORT Name: ALEXANDRE MCGREGOR JR Room: [address] Siddhartha Roach#: [id number] Admission: 04/04/20 Attend Phys: Jeremiah Anguiano MD, Discharge: Date of : 48 Report #: [id number] Conclusion 1. Significant coronary artery disease characterized by the following: A 10% distal left main coronary artery narrowing B 40% mid LAD narrowing with a widely patent mid first diagonal stent C 75% tubular mid circumflex narrowing with 90% ostial first marginal stenosis D 100% of the occlusion of the right coronary artery beyond the acute margin with [id number] collaterals filling the distal right coronary artery 2. Moderate elevation of left ventricular end diastolic pressure at rest with moderate systemic systolic hypertension 3. Successful PCI with deployment of a drug-eluting stent at site of 90% ostial first marginal stenosis with 10% residual narrowing and NICO-3 flow to the distal vessel 4. Successful PCI with deployment of drug-eluting stent at the site of 75% tubular mid circumflex stenosis with 0% residual narrowing and NICO-3 flow to the distal vessel Recommendations Cardiac Risk Reduction Program Aggressive Medical Therapy Medications Administered Aspirin (any) Clopidogrel Diagnostic Cath Approved by: Jeremiah Anguiano MD Date/Time: 04/04/2020 15:51:27 <ELECTRONICALLY SIGNED> By: Jeremiah Anguiano MD, [facility] 04/04/20 1556 1556 1556Jeremiah Anguiano MD, [facility] /INF
--- NOTE | 2020-04-04 16:00 | NUR ---
PT ADMITTED TO ROOM 219 FROM STRUCTURAL STEEL PAINTER VIA REPORT FROM RIMA HARTLEY.2 STENTS PLACED,ONE ON OM AND ONE IN CIRC THROUGH LEFT GROIN.DRESSING WITH SMALL AMOUNT OF DRAINAGE FROM PRIOR TO ADMISSION,SOFT AND WITHOUT BRUISING.PT IS AOX4 ABLE TO ANSWER QUESTIONS APPROPRIATELY. ASSESSMENT CHARTED. PT EDUCATED TO BEDREST.NOTHING FURTHER.CLWR
[2020-04-05 04:27] LABS: HEMATOCRIT 37.1 % (42.0-52.0); HEMOGLOBIN 12.8 gm/dL (14.0-18.0); MCH 31.9 pg (26.0-34.0); MCHC 34.5 g/dL (28.0-37.0); MCV 92.5 fL (80.0-100.0); MPV 8.1 fl. (7.2-11.1); RBC 4.01 mil/uL (4.50-6.00); RDW-CV 12.4 % (10.5-14.5); WBC 7.6 thou/uL (4.0-11.0)
[2020-04-05 04:39] LABS: TOTAL BILIRUBIN 0.5 mg/dL (<0.1-1.0); TROPONIN-I LEVEL 0.18 ng/mL (<0.06)
[2020-04-05 05:21] VITALS: BP 117/67
[2020-04-05] MEDS ORDERED: CRESTOR5 MG PO (08:51)
[2020-04-05 08:53] VITALS: BP 125/64
--- NOTE | 2020-04-05 10:07 | NUR ---
CM SPOKE TO THE PT TO DISCUSS CM ASSESSMENT. PT A&O, INDEPENDENT WITH ADL'S, AND ACTIVE. PT RESIDES AT HOME WITH SIGNIFICANT OTHER. PT USES 0 DME. PT HAS 0 HX OF HH OR SNF. NO CM D/C PLANNING NEEDS ANTICIAPATED. CM WILL REMAIN AVAILABLE TO ASSIST AND FOLLOW NEEDED.
[2020-04-05 11:01] VITALS: BP 147/71
--- NOTE | 2020-04-05 11:01 | NUR ---
PT RESTING AT THIS TIME.NO COMPLAINTS. SR WITH [facility] ON THE MONITOR.PT TO DC TODAY.NOTHING FURTHER.CLWR.WCTM
[2020-04-05 11:03] VITALS: BP 147/71
[2020-04-05 11:07] VITALS: BP 147/71
--- NOTE | 2020-04-05 12:13 | NUR ---
PT DCD TO HOME IN STABLE CONDITION. DC INSTRUCTIONS REVIEWED WITH PT AND PT REPORTS UNDERSTANDING WITHOUT FURTHER QUESTIONS.
--- NOTE | 2020-04-05 16:02 | EKG ---
[place] [address] ELECTROCARDIOGRAM REPORT Name: ALEXANDRE MCGREGOR JR Room: [address] M.R.#: [id number] Admission: 04/04/20 Attend Phys: Tammie Brooks Discharge: 04/05/20 Date of : 48 Date of Service: 04/05/20 0844 Report #: [id number] THIS REPORT FOR: //name// [facility] Test Date: 2020-04-05 Test Time: 08:44:05 Pat Name: ALEXANDRE COTTONNEY Department: Room: [facility] Gender: M Mosaic Tiler: TRAVIS : 1950 Requested By: Jeremiah Anguiano Order Number: [id number] Reading MD: Yogesh Love Measurements Intervals [place] Rate: 68 P: 18 [place]: 207 QRS: 40 QRSD: 93 T: 189 QT: 398 QTc: 424 Interpretive Statements Sinus rhythm Nonspecific ST segment depression diffusely Ventricular premature complex Compared to ECG 04/04/2020 13:20:59 Myocardial infarct finding now present Electronically Signed On 04-05-2020 16:02:03 MANAGER REGULATORY by Yogesh Love [email or web address] <ELECTRONICALLY SIGNED> By: Yogesh Love MD, FAC 04/05/20 1602 0844 0844 Yogesh Love MD, [facility] /EPI
--- NOTE | 2020-04-06 10:18 | D ---
[address] [address] DISCHARGE SUMMARY Name: BALBIRALEXANDRE JR Room: [address] M.R.#: [id number] Admission: 04/04/20 Attend Phys: Jeremiah Anguiano MD, Discharge: 04/05/20 Date of : 48 Report #: [id number] THIS REPORT FOR: cc: FAM - No family physician/PCP FAM - No family physician/PCP ~ Jeremiah Anguiano MD [facility] DATE OF SERVICE: 04/05/2020 FINAL DISCHARGE DIAGNOSES: 1. Unstable angina. 2. Status post recent non-ST segment elevation myocardial infarction. 3. Status post percutaneous coronary intervention, previously in the first diagonal into the circumflex on 04/04/2020. 4. Hypertension. 5. Status post left carotid endarterectomy. 6. Mild aortic stenosis. PROCEDURES: 04/04/2020-- left heart catheterization, selective coronary arteriography and percutaneous coronary intervention with deployment of drug-eluting stent at site of 90% ostial proximal first marginal stenosis and placement of drug-eluting stent at the site of 75% tubular mid circumflex stenosis. HOSPITAL COURSE: The patient is a very pleasant and active 70-year-old male with severe diffuse atherosclerotic cardiovascular disease. He has known coronary artery disease, status post prior PCIs and recent non-STEMI with a subtotal occlusion of the first diagonal branch. He also has known peripheral vascular disease and is status post prior left carotid endarterectomy. He presented approximately 2 weeks ago with a non-STEMI and underwent PCI of the diagonal. He was noted to have significant bifurcation circumflex lesion, which was not approached in the acute setting. He was readmitted on 04/04/2020 and the diagonal stent was found to be widely patent. He had 90% ostial proximal first marginal narrowing and 75% narrowing in the mid circumflex. I placed one 2.0 x 15 mm [place] drug-eluting stent in the first marginal, post-dilating with a 2.25 x 8 mm Trek to 14 atmospheres with a 10% residual narrowing and I placed one 2.5 x 18 mm Theron drug-eluting stent in the mid circumflex, achieving a final luminal diameter of 2.75 with 0% residual narrowing and NICO 3 flow to the distal circulations. He did well post-procedural with an inconsequential increase in troponin 0.18 post-procedurally. He had no chest pain after the procedure. There was good hemostasis at the left femoral site of catheterization. He ambulated in [place] [address] DISCHARGE SUMMARY Name: ALEXANDRE MCGREGOR Room: [address] Siddhartha Roach#: [id number] Admission: 04/04/20 Attend Phys: Jeremiah Anguiano MD, Discharge: 04/05/20 Date of : 48 Report #: [id number] LABORATORY DATA: On 04/05 revealed a sodium 139, potassium 4.0, BUN 12, creatinine 1.0, glucose 104, LDL 158, total cholesterol of 211. White blood cell count 7600, hemoglobin 12.8, hematocrit 37.1, platelets 239,000. DISCHARGE MEDICATIONS: The patient was discharged to home on the following medications: P.r.n. sublingual nitroglycerin; vitamins A, C, B2 daily; ranitidine 300 mg daily; Zyrtec 10 mg b.i.d.; triamcinolone cream applied to local rash; fish oil 1000 mg daily; clopidogrel or Plavix 75 mg with a 600 mg farzaneh-procedural dose having been given; carvedilol 3.125 mg b.i.d.; aspirin 81 mg daily, 162 mg farzaneh-procedural dose having been given; Protonix 40 mg daily; and rosuvastatin 5 mg daily. He is scheduled to return to see my nurse practitioner in 10 days to 2 weeks, and I will plan to see him in 6 weeks in followup status post recent non-STEMI and PCI of the circumflex on 04/04/2020. <ELECTRONICALLY SIGNED> By: Jeremiah Anguiano MD, [facility] 04/06/20 1018 0936 [id number] Anguiano MD, FAC /nt
== END 2020-04-05 12:00 | disposition home or self-care (01) ==
LOC: M.CL 08:57 → M.TBA-CV 12:33 → M.2W 15:44
PROVIDERS: ADMIT Internal Medicine; ATTEND Internal Medicine
DX: I20.0 Unstable angina (principal); Z20.828 Contact with and (suspected) exposure to other viral communicable diseases; I10 Essential (primary) hypertension; I35.0 Nonrheumatic aortic (valve) stenosis

== ENCOUNTER → 2021-03-05 | Outpatient (CLI) | payer MEDICARE, OTHER ==
[~2021-03-05] MED LIST changes: +CRESTOR5 MG PO
--- NOTE | 2021-03-05 17:30 | CARDNUC ---
[place] [address] CARDIAC NUCLEAR IMAGING REPORT Name: ALEXANDRE MCGREGOR JR Room: [facility]#: [id number] Admission: 03/05/21 Attend Phys: Tammie Brooks Discharge: Date of : 48 Date of Service: 03/05/21 1730 Report #: [id number] THIS REPORT FOR: cc: FAM - Family physician unknown FAM - Family physician unknown Yogesh Love MD [facility] ~ APPROVED REPORT Study performed: 03/05/2021 09:10:01 Exam: Nuclear Stress Test Patient Location: Out-Patient Stress Tech: Hari Schmidt Stress Nurse: Lenka Reyna RN NM Tech:EARNEST Moran Ht: 5 ft 11 in Wt: 205 lbs BSA: 2.13 m2 BMI: 28.58 Medical History Medical History: CAD s/p stent, Carotid artery disease, HTN, Hyperlipidemia Medications: asa, carvedilol, clopidogrel, ntg, rosuvastatin Allergies: No known drug allergies Cardiac Risk Factors: Age, FHX of CAD, HTN, Hyperlipidemia, Tobacco History (Former) Previous Cardiac Procedures: PCI Exercise History: Indeterminate Meds Held (24 hrs): carvedilol Stress Test Details Stress Test: Pharmacologic stress testing performed using 0.4 mg of regadenoson per 5 mL given IV over 10 seconds. Reason for pharmacologic stress test: bad hip. HR Resting HR: 64 bpm Max Heart Rate (APMHR): 148 bpm Max HR Achieved: 91 bpm Target HR (85% APMHR): 125 bpm % of APMHR: 61 Recovery HR: 83 bpm BP Resting BP: 173/104 [place] [address] CARDIAC NUCLEAR IMAGING REPORT Name: ALEXANDRE MCGREGOR JR Room: [facility]#: [id number] Admission: 03/05/21 Attend Phys: Tammie Brooks Discharge: Date of : 48 Date of Service: 03/05/21 1730 Report #: [id number] Max BP: 135/90 mmHg ECG Resting ECG: Sinus rhythm with incomplete left bundle branch block Stress ECG: Sinus rhythm with incomplete left bundle branch block ST Change: None Arrhythmia: None Recovery ECG: Sinus rhythm with incomplete left bundle branch block Recovery ST Change: None Recovery Arrhythmia: None Clinical Reason for Termination: Completed protocol The patient tolerated Lexiscan infusion without significant cardiac symptoms. Stress ECG Conclusion The baseline twelve-lead EKG shows sinus rhythm with incomplete left bundle branch block. EKGs obtained during and post Lexiscan infusion show sinus rhythm with incomplete left bundle branch block. There were no significant ST segment changes when compared to baseline. There were no stress-induced arrhythmias. NM EXAM: Myocardial Perfusion REST/STRESS Imaging Protocol: Rest Tc-99m/Stress Tc-99m 1 day Resting Data Rest SPECT myocardial perfusion imaging was performed in supine position 30 minutes following the intravenous injection of 10.3 mCi of Tc-99m Sestamibi. Time of rest injection: 734 Date: 03/05/2021 The images were gated to evaluate regional wall motion and calculate left ventricular ejection fraction. Administration Route: IV Administration Site: Left Hand Pharmacologic Stress Pharmacologic stress test was performed by injecting Regadenoson 0.4 mg IV push followed by the intravenous injection of 35.3 mCi of Tc-99m Sestamibi. Time of stress injection: 904 Date: 03/05/2021 Administration Route: IV Administration Site: [place] [address] CARDIAC NUCLEAR IMAGING REPORT Name: ALEXANDRE MCGREGOR JR Room: [facility]#: [id number] Admission: 03/05/21 Attend Phys: Tammie Brooks Discharge: Date of : 48 Date of Service: 03/05/21 8670 Report #: [id number] Gated Stress SPECT was performed 40 minutes after stress injection. The images were gated to evaluate regional wall motion and calculate left ventricular ejection fraction. Prone imaging was performed. Study Quality Study: Good Artifact: No artifact Study Data At rest, the left ventricular ejection fraction was 50%.. Post stress, the left ventricular ejection was 52%.. TID = 0.96. Perfusion Perfusion images obtained at rest and post Lexiscan stress show a moderate size severe intensity fixed defect involving the basal to distal inferior wall. No other significant fixed or reversible defects are identified. Wall Motion There is hypokinesis of the mid to distal inferior and inferoseptal wall. Global LV systolic function is fairly well-preserved. Nuclear Conclusion ECG Findings: negative for ischemia Clinical Findings: negative for ischemia Nuclear Findings: negative for ischemia Exercise Capacity: not assessed Left Ventricular Function: Preserved Perfusion images suggest prior infarct of the basal to distal inferior wall. No other fixed or reversible defects are identified. Global LV systolic function is preserved with wall motion abnormalities as outlined above. This is not a high risk study. <Conclusion> The baseline twelve-lead EKG shows sinus rhythm with incomplete left bundle branch block. EKGs obtained during and post Lexiscan infusion show sinus rhythm with incomplete left bundle branch block. There were no significant ST segment changes when compared to baseline. There were no stress-induced arrhythmias. <ELECTRONICALLY SIGNED> By: Yogesh Love MD, FACC 03/05/211729 29 29 Yogesh Love MD, FACC /INF
== END ==
LOC: M.NUC 09-12 12:57
PROVIDERS: ATTEND Internal Medicine
DX: I25.10 Atherosclerotic heart disease of native coronary artery without angina pectoris (principal); Z95.5 Presence of coronary angioplasty implant and graft